=== PATIENT | female | born 1965 | race Caucasian/White ===

== ENCOUNTER 2019-03-30 18:53 | Emergency (ER) | payer OTHER ==
[~2019-03-30] VITALS: Ht 157.5 cm; Wt 52.2 kg
[~2019-03-30 18:53] MED LIST: ADDERALL 15 MG15 MG PO; CELEXA20 MG PO; CEPHALEXIN 250250 M1 PO; FLEXERIL PO; HYDROCODONE-AP1 EAC6 PO; KLOR-CON20 ME1 PO; LASIX 40 MG TAB40 M2 PO; LORATIDINE 10 M10 M1 PO; LORAZEPAM 1 MG T1 M1 PO; MOBIC15 MG PO; OXYCONTIN20 M1 PO; REMERON15 MG PO
[2019-03-30 19:17] LABS: ABSOLUTE BASOPHILS 0.1 thou/uL (0.0-0.2); ABSOLUTE EOSINOPHILS 0.2 thou/uL (0.0-0.7); ABSOLUTE LYMPHOCYTES 2.3 thou/uL (0.8-5.3); ABSOLUTE MONOCYTES 0.3 thou/uL (0.0-1.2); BASOPHILS 1.3 %; EOSINOPHILS 2.5 %; HEMATOCRIT 39.3 % (37.0-47.0); HEMOGLOBIN 13.3 gm/dL (12.0-15.0); LYMPHOCYTES 29.1 %; MCH 33.8 pg (26.0-34.0); MCHC 33.9 g/dL (28.0-37.0); MCV 99.6 fL (80.0-100.0); MONOCYTES 4.3 %; MPV 8.8 fl. (7.2-11.1); NUCLEATED RBCS 0 /100WBC; PLATELET COUNT* 193 thou/uL (150-400); POLYS 62.8 %; RBC 3.94 mil/uL (4.20-5.00); RDW-CV 14.1 % (10.5-14.5)
[2019-03-30 19:25] LABS: ANION GAP 10 mmol/L (7-16); BUN 12 mg/dL (7-18); CALCIUM 9.5 mg/dL (8.5-10.1); CHLORIDE 104 mmol/L (98-107); CO2 27 mmol/L (21-32); GLUCOSE 114 mg/dL (70-99); POTASSIUM 3.8 mmol/L (3.5-5.1); SODIUM 141 mmol/L (136-145)
[2019-03-30 19:26] LABS: PROTIME 9.8 Seconds (9.20-11.50)
[2019-03-30 19:36] LABS: ALBUMIN 4.1 g/dL (3.4-5.0); ALKALINE PHOSPHATASE 92 U/L (46-116); LIPASE 162 U/L (73-393); NT-PRO BRAIN NAT PEPTIDE 288 pg/mL (<300); SGOT 111 U/L (15-37); SGPT 109 U/L (30-65); TOTAL BILIRUBIN 0.3 mg/dL (<0.1-1.0); TROPONIN-I LEVEL <0.06 ng/mL (<0.06)
[2019-03-30 19:56] LABS: TOTAL PROTEIN 7.3 g/dL (6.4-8.2)
[2019-03-30 19:58] LABS: AMP/METHAMP Negative (Negative); BARBITURATES Negative (Negative); BENZODIAZEPINES Negative (Negative); COCAINE Negative (Negative); METHADONE Negative (Negative); OPIATES Negative (Negative); PCP Negative (Negative); THC POSITIVE (Negative)
[2019-03-30 20:40] LABS: URINE BILIRUBIN NEGATIVE (Negative); URINE BLOOD 2+ (Negative); URINE CLARITY CLEAR; URINE COLOR YELLOW; URINE GLUCOSE-RANDOM NEGATIVE (Negative); URINE KETONES NEGATIVE (Negative); URINE LEUKOCYTES-REFLEX NEGATIVE (Negative); URINE NITRITE-REFLEX NEGATIVE (Negative); URINE PROTEIN NEGATIVE (Negative); URINE SPECIFIC GRAVITY <= 1.005 (1.005-1.030); URINE UROBILINOGEN 0.2 E.U./dl (0.2-1.0)
[2019-03-30 21:31] LABS: BACTERIA-REFLEX None Seen /HPF (None Seen); CASTS None Seen /LPF (None Seen); CRYSTALS None Seen /LPF (None Seen); SQUAMOUS 0-3 Few /LPF (0-3); URINE RBC 3-10 Few /HPF (0-2); URINE WBC-REFLEX 0-5 Rare /HPF (0-5)
[2019-03-30] MEDS ORDERED: LISINOPRIL20 MG PO (22:02)
[2019-03-30] MEDS ORDERED: CELEXA20 MG PO (22:02)
[2019-03-30] MEDS ORDERED: VISTARIL 25 MG25 M1 PO (22:02)
[2019-03-30] MEDS ORDERED: FLEXERIL PO (22:02)
[2019-03-30 22:26] VITALS: BP 137/68
--- NOTE | 2019-04-02 12:31 | EKG ---
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 : 1965 Requested By: Vidya James Order Number: [id number] MD: Brayden Ross Measurements Intervals [place] Rate: 100 P: 62 [place]: 159 QRS: -28 QRSD: 103 T: 61 QT: 372 QTc: 480 Interpretive Statements Sinus tachycardia Probable left atrial enlargement Borderline left axis deviation RSR' in V1 or V2, probably normal variant Nonspecific T abnormalities, anterior leads Borderline prolonged QT interval No previous ECG available for comparison Electronically Signed On 04-02-2019 12:31:35 CDT by Brayden Ross [email or web address] <ELECTRONICALLY SIGNED> By: Brayden Ross MD, [facility] 04/02/19 1231 1859 58 Brayden Ross MD, FACC /EPI
== END 2019-03-30 22:29 | disposition home or self-care (01) ==
LOC: M.ERS 18:53
PROVIDERS: Emergency Medicine
DX: I10 Essential (primary) hypertension (principal); F41.9 Anxiety disorder, unspecified; M79.7 Fibromyalgia; Z90.710 Acquired absence of both cervix and uterus; M19.90 Unspecified osteoarthritis, unspecified site; F32.9 Major depressive disorder, single episode, unspecified; Z88.8 Allergy status to other drugs, medicaments and biological substances; Z79.899 Other long term (current) drug therapy

== ENCOUNTER 2019-07-23 05:14 | Emergency (ER) | payer OTHER ==
[~2019-07-23] VITALS: Ht 157.5 cm; Wt 49.9 kg
[~2019-07-23 05:14] MED LIST changes: +LISINOPRIL20 MG PO; +VISTARIL 25 MG25 M1 PO
[2019-07-23 05:57] LABS: ABSOLUTE EOSINOPHILS 0.1 thou/uL (0.0-0.7); ABSOLUTE MONOCYTES 0.4 thou/uL (0.0-1.2); ABSOLUTE NEUTROPHILS 4.2 thou/uL (1.6-8.1); BASOPHILS 0.5 %; EOSINOPHILS 1.4 %; HEMATOCRIT 37.9 % (37.0-47.0); HEMOGLOBIN 12.6 gm/dL (12.0-15.0); LYMPHOCYTES 18.1 %; MCH 34.3 pg (26.0-34.0); MCHC 33.4 g/dL (28.0-37.0); MCV 102.9 fL (80.0-100.0); MONOCYTES 6.6 %; MPV 8.2 fl. (7.2-11.1); NUCLEATED RBCS 0 /100WBC; PLATELET COUNT* 172 thou/uL (150-400); POLYS 73.4 %; RBC 3.68 mil/uL (4.20-5.00); RDW-CV 15.2 % (10.5-14.5); WBC 5.7 thou/uL (4.0-11.0)
[2019-07-23 06:14] LABS: CALCIUM 8.6 mg/dL (8.5-10.1); CREATININE 0.7 mg/dL (0.6-1.3); POTASSIUM 3.9 mmol/L (3.5-5.1)
[2019-07-23 06:19] LABS: ALBUMIN 3.8 g/dL (3.4-5.0); TOTAL BILIRUBIN 0.6 mg/dL (<0.1-1.0); TOTAL PROTEIN 6.7 g/dL (6.4-8.2)
[2019-07-23] MEDS ORDERED: PROPRANOLOL 1010 MG PO (06:32)
[2019-07-23] MEDS ORDERED: AMITRIPTYLINE H25 M2 PO (06:32)
[2019-07-23] MEDS ORDERED: CELEXA20 MG PO (06:32)
[2019-07-23] MEDS ORDERED: PREDNISONE 20 M20 M1 PO (06:37)
[2019-07-23 07:03] VITALS: BP 126/67
--- NOTE | 2019-07-23 12:03 | EKG ---
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 : 1965 Requested By: Esme Dominguez Order Number: [id number] MD: Brayden Ross Measurements Intervals [place] Rate: 67 P: 45 [place]: 152 QRS: -18 QRSD: 107 T: 25 QT: 428 QTc: 452 Interpretive Statements Sinus rhythm Borderline left axis deviation RSR' in V1 or V2, probably normal variant Compared to ECG 03/30/2019 18:59:46 Sinus tachycardia no longer present T-wave abnormality no longer present Electronically Signed On 07-23-2019 12:03:32 CDT by Brayden Ross [email or web address] <ELECTRONICALLY SIGNED> By: Brayden Ross MD, [facility] 07/23/19 1203 0540 0540 Brayden Ross MD, [facility] /EPI
== END 2019-07-23 07:04 | disposition home or self-care (01) ==
LOC: M.ERS 05:14
PROVIDERS: Personal Emergency Response Attendant
DX: F41.0 Panic disorder [episodic paroxysmal anxiety] (principal); R06.2 Wheezing; N80.9 Endometriosis, unspecified; M79.7 Fibromyalgia; F32.9 Major depressive disorder, single episode, unspecified; Z88.8 Allergy status to other drugs, medicaments and biological substances; Z90.710 Acquired absence of both cervix and uterus

== ENCOUNTER 2020-01-16 20:55 | Emergency (ER) | payer OTHER ==
[~2020-01-16] VITALS: Ht 157.5 cm; Wt 54.4 kg
[~2020-01-16 20:55] MED LIST changes: +AMITRIPTYLINE H25 M2 PO; +PREDNISONE 20 M20 M1 PO; +PROPRANOLOL 1010 MG PO
[2020-01-16 21:30] LABS: ABSOLUTE BASOPHILS 0.1 thou/uL (0.0-0.2); ABSOLUTE EOSINOPHILS 0.3 thou/uL (0.0-0.7); ABSOLUTE LYMPHOCYTES 2.6 thou/uL (0.8-5.3); ABSOLUTE MONOCYTES 0.4 thou/uL (0.0-1.2); ABSOLUTE NEUTROPHILS 3.5 thou/uL (1.6-8.1); BASOPHILS 0.8 %; EOSINOPHILS 4.3 %; HEMOGLOBIN 14.2 gm/dL (12.0-15.0); LYMPHOCYTES 37.9 %; MCH 34.9 pg (26.0-34.0); MCHC 34.6 g/dL (28.0-37.0); MCV 100.7 fL (80.0-100.0); MPV 8.1 fl. (7.2-11.1); NUCLEATED RBCS 0 /100WBC; PLATELET COUNT* 180 thou/uL (150-400); RBC 4.07 mil/uL (4.20-5.00); RDW-CV 13.9 % (10.5-14.5); WBC 6.8 thou/uL (4.0-11.0)
[2020-01-16 21:41] LABS: CALCIUM 9.2 mg/dL (8.5-10.1); CREATININE 0.7 mg/dL (0.6-1.3); POTASSIUM 3.8 mmol/L (3.5-5.1)
[2020-01-16 21:51] LABS: ALBUMIN 4.1 g/dL (3.4-5.0); MAGNESIUM 1.9 mg/dL (1.8-2.4); TOTAL BILIRUBIN 0.2 mg/dL (<0.1-1.0); TOTAL PROTEIN 7.5 g/dL (6.4-8.2)
[2020-01-16] MEDS ORDERED: ZESTRIL10 MG PO (23:08)
[2020-01-16] MEDS ORDERED: ATIVAN1 M1 PO (23:08)
[2020-01-17 00:30] VITALS: BP 123/64
--- NOTE | 2020-01-17 11:54 | EKG ---
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 : 1965 Requested By: Flynn Paz Order Number: [id number] MD: Germain Gibson Measurements Intervals [place] Rate: 84 P: 42 [place]: 124 QRS: -33 QRSD: 105 T: 31 QT: 381 QTc: 451 Interpretive Statements Sinus rhythm Left axis deviation RSR' in V1 or V2, probably normal variant Compared to ECG 07/23/2019 05:40:19 No significant changes Electronically Signed On 01-17-2020 11:53:42 DIRECTOR INTEGRATED by Germain Gibson [email or web address] <ELECTRONICALLY SIGNED> By: Germain Gibson MD, [facility] 01/17/20 1153 01 01 Germain Gibson MD, [facility] /EPI
--- NOTE | 2020-01-17 11:57 | EKG ---
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
== END 2020-01-17 00:30 | disposition home or self-care (01) ==
LOC: M.ERS 20:55
PROVIDERS: Emergency Medicine Emergency Medical Services
DX: R07.89 Other chest pain (principal); N80.9 Endometriosis, unspecified; M79.7 Fibromyalgia; M19.90 Unspecified osteoarthritis, unspecified site; F32.9 Major depressive disorder, single episode, unspecified; F41.9 Anxiety disorder, unspecified; F17.210 Nicotine dependence, cigarettes, uncomplicated; Z90.710 Acquired absence of both cervix and uterus; Z88.8 Allergy status to other drugs, medicaments and biological substances